=== PATIENT | male | born 1995 | race Two or more races ===

== ENCOUNTER 2023-03-31 11:49 | Inpatient (IN) | payer OTHER ==
[~2023-03-31] VITALS: Ht 175.3 cm; Wt 79.9 kg
[2023-03-31] MEDS ORDERED: HYDROcodone-ACET 10/325MG TAB PO ONE (13:15)
[2023-03-31] MEDS ORDERED: ONDANSETRON HCL 4 MG/2 ML VIAL IV PRN (17:15)
[2023-03-31] MEDS ORDERED: MORPHINE SULFATE INJ 2 MG/ml SYRG IV PRN (17:15)
[2023-03-31] MEDS ORDERED: DEXTROSE (50%) 50ML SYRG IV PRN (17:15)
[2023-03-31] MEDS ORDERED: NITROGLYCERIN 0.4 MG SL TAB SL PRN (17:15)
[2023-03-31] MEDS: HYDROcodone-ACET 10/325MG TAB PO PRN (19:08)
[2023-03-31 20:43] VITALS: BP 131/76
[2023-03-31] MEDS: ACCU-CHEK COMFORT CURVE STRIP VI SCH (21:54)
[2023-03-31] MEDS: CYCLOBENZAPRINE HCL 10 MG TAB PO SCH (21:54)
[2023-03-31] MEDS: NAPROXEN 500 MG TAB PO SCH (21:54)
[2023-03-31] MEDS ORDERED: InsuLIN REG 1unit/0.01ml Soln (100units/ml) SC SCH (22:00)
[2023-04-01] MEDS: HYDROcodone-ACET 10/325MG TAB PO PRN ×2 (04:21→18:50)
[2023-04-01 05:00] VITALS: BP 113/59
[2023-04-01] MEDS: ACCU-CHEK COMFORT CURVE STRIP VI SCH ×5 (06:15→21:41)
[2023-04-01] MEDS ORDERED: InsuLIN REG 1unit/0.01ml Soln (100units/ml) SC SCH ×2 (07:00→12:45)
[2023-04-01 07:30] VITALS: BP 120/73
[2023-04-01 09:00] VITALS: BP 120/73
[2023-04-01] MEDS: CYCLOBENZAPRINE HCL 10 MG TAB PO SCH ×2 (10:25→21:39)
[2023-04-01] MEDS: NAPROXEN 500 MG TAB PO SCH ×2 (10:25→21:36)
[2023-04-01] MEDS: PANTOPRAZOLE 40 MG/10 ML VIAL INJ IV SCH (10:25)
[2023-04-01] MEDS: InsuLIN REG 1unit/0.01ml Soln (100units/ml) SC SCH ×3 (11:30→21:41)
[2023-04-01] MEDS ORDERED: DEXTROSE (50%) 50ML SYRG IV PRN (12:45)
[2023-04-01 13:00] VITALS: BP 113/65
[2023-04-01 20:00] VITALS: BP 120/73
[2023-04-01 22:00] VITALS: BP 108/67
[2023-04-02] VITALS (7 sets, daily range): BP systolic 100–136; BP diastolic 48–82
[2023-04-02] MEDS: HYDROcodone-ACET 10/325MG TAB PO PRN ×2 (06:18→11:51)
[2023-04-02] MEDS: ACCU-CHEK COMFORT CURVE STRIP VI SCH ×3 (06:21→17:00)
[2023-04-02] MEDS: InsuLIN REG 1unit/0.01ml Soln (100units/ml) SC SCH ×3 (06:21→17:00)
[2023-04-02] MEDS: CYCLOBENZAPRINE HCL 10 MG TAB PO SCH (10:00)
[2023-04-02] MEDS: PANTOPRAZOLE 40 MG/10 ML VIAL INJ IV SCH (10:00)
[2023-04-02] MEDS: NAPROXEN 500 MG TAB PO SCH (10:00)
[2023-04-02] MEDS ORDERED: ENOXAPARIN SOD 40 MG/0.4 ML SYRINGE SC SCH (10:00)
== END 2023-04-02 21:31 | DRG 552 ==
LOC: EEVIPCON 11:49 → ER 11:49 → EDBD 11:49 → OVERFLOW 17:27 → CENTRAL 20:30
PROVIDERS: ADMIT Internal Medicine; ATTEND Internal Medicine
DX: S16.1XXA Strain of muscle, fascia and tendon at neck level, initial encounter (principal); E11.649 Type 2 diabetes mellitus with hypoglycemia without coma; S00.83XA Contusion of other part of head, initial encounter; S80.02XA Contusion of left knee, initial encounter; J45.909 Unspecified asthma, uncomplicated; W18.39XA Other fall on same level, initial encounter; Z79.4 Long term (current) use of insulin; Z83.3 Family history of diabetes mellitus; Y93.89 Activity, other specified; Y92.89 Other specified places as the place of occurrence of the external cause; Y99.8 Other external cause status
CPT/HCPCS: 70450; 70486; 72125; 73562; 82962; 96372; C9113; G0378; J1815